=== PATIENT | female | born 1975 | race American Indian/Alaskan Native ===

== ENCOUNTER 2016-07-17 08:56 | Emergency (ER) | payer SELFPAY ==
--- NOTE | 2016-07-17 10:17 | Emergency Department Report ---
Entered by DARRICK BARBER, acting as scribe for YO JACOBS NP. Chief Complaint: Dizziness Stated Complaint: DIZZINESS/HEADACHE Time Seen by Provider: 07/17/16 09:38 - HPI History of Present Illness: Patient presents to the ED c/o dizziness since 03:00 this morning. Denies abdominal pain, chest pain, SOB, dysruia, nausea, vomiting, and diarrrhea. 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 No PSHx, PMHx, and not currently taking any medications. woke at 0300 and got out of bed fast. got dizzy. 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 no n/v/d no mantilla no trauma - Exam Vital Signs: Vital Signs 07/17/16 09:24 Temperature 98.4 F Pulse Rate 83 Respiratory 18 Rate Blood Pressure 141/85 O2 Sat by Pulse 100 Oximetry Physical Exam: General: well nourished, well develed, 40 year old female in no acute distress and nontoxic in appearance Neurologic: GCS 15, A&O x 4 nad vertigo w rapid head movement to right horizontal nystagmus MSE screening note: Focused history and physical exam performed. Due to findings the following was ordered: to FT for eval ED Medical Decision Making - EKG Data EKG shows normal: sinus rhythm Rate: normal - EKG Data Interpretation: no acute changes - Medical Decision Making MDM: Patient seen by provider in triage area. [id number] to ft for ua/preg/orthostatics; and reeval ED Disposition for MSE Condition: Stable This documentation as recorded by the scribe,DARRICK BARBER,accurately reflects the service I personally performed and the decisions made by ,YO ECHEVERRIA NP.
[2016-07-17 11:18] LABS: Bacteria,Urine 1+ /HPF (Negative); Bilirubin,Urine NEG (Negative); Blood,Urine NEG (Negative); Ketones,Urine NEG (Negative); Leukocyte Esterase,Urine NEG (Negative); Mucus,Urine FEW /HPF; Nitrite,Urine NEG (Negative); Protein,Urine <15 mg/dL mg/dL (Negative)
[2016-07-17] MEDS ORDERED: NACL 0.9% 1000 ML 1,000 ML IV ONE (11:18)
[2016-07-17] MEDS ORDERED: ANTIVERT PO ONE (11:20)
--- NOTE | 2016-07-17 11:23 | Emergency Department Report ---
ED Dizziness HPI - General Chief Complaint: Dizziness Stated Complaint: DIZZINESS/HEADACHE Time Seen by Provider: 07/17/16 10:57 Source: patient Mode of arrival: Ambulatory Limitations: No Limitations - History of Present Illness Initial Comments: This 40-year-old female that presents with headache since 3 AM. She describes her headache as ache. Denies thunderclap headache. Patient states that this is a gradual onset of headache. Patient also states that she has severe dizziness with getting up from her bed. She stated she started feeling symptoms of dizziness this morning when she wake up from bed. Denies any trauma. 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 LMP 06/16/16. Denies stiff neck, n/v, chest pain, SOB, or weakness. Denies numbness or tingling sensation. She stated she feels normal just has "this dizziness". She stated has a history of migraine and tension headaches. Denies seeing her primary care doctor or neurologist for her headaches. She states that she takes [id number] medication for her headaches. Patient also stated has not been drinking enough fluids the past couple days. MD Complaint: dizziness -: Gradual, days(s) Time: 03:00 Timing: gradual onset Description: sense of movement, other History of Same: No History of Trauma: No Severity: mild Worsens With: movement, position Associated Symptoms: denies other symptoms - Related Data Previous Rx's Medication Instructions Recorded Last Taken Type Meclizine [Antivert] 25 mg PO DAILY PRN #7 tablet 07/17/16 Unknown Rx Allergies Allergy/AdvReac Type Severity Reaction Status Date / Time No Known Allergies Allergy Unverified 07/17/16 10:56 ED Review of Systems ROS: Stated complaint: DIZZINESS/HEADACHE Other details as noted in HPI Comment: All other systems reviewed and negative Constitutional: denies: chills, fever Eyes: denies: eye pain, eye discharge, vision change ENT: denies: ear pain, throat pain Respiratory: denies: cough, shortness of breath, wheezing Cardiovascular: denies: chest pain, palpitations Endocrine: no symptoms reported Gastrointestinal: denies: abdominal pain, nausea, diarrhea Genitourinary: denies: urgency, dysuria, discharge Musculoskeletal: denies: back pain, joint swelling, arthralgia Skin: denies: rash, lesions Neurological: denies: headache, weakness, paresthesias Psychiatric: denies: anxiety, depression Hematological/Lymphatic: denies: easy bleeding, easy bruising ED Past Medical Hx - Past Medical History Previous Medical History?: No - Surgical History Past Surgical History?: No - Social History Smoking Status: Never Smoker Substance Use Type: None - Medications Home Medications: Home Medications Medication Instructions Recorded Confirmed Last Taken Type Meclizine [Antivert] 25 mg PO DAILY PRN #7 tablet 07/17/16 Unknown Rx ED Physical Exam - General Limitations: No Limitations General appearance: alert, in no apparent distress - Head Head exam: Present: atraumatic, normocephalic, normal inspection - Eye Eye exam: Present: normal appearance, PERRL, EOMI, nystagmus (horizontal) - ENT ENT exam: Present: normal orophraynx, mucous membranes moist, TM's normal bilaterally - Neck Neck exam: Present: normal inspection, full ROM. Absent: tenderness, meningismus, lymphadenopathy, thyromegaly - Respiratory Respiratory exam: Present: normal lung sounds bilaterally. Absent: respiratory distress, wheezes, rales, rhonchi - Cardiovascular Cardiovascular Exam: Present: regular rate, normal rhythm. Absent: systolic murmur, diastolic murmur, rubs, gallop - GI/Abdominal GI/Abdominal exam: Present: soft, normal bowel sounds - Extremities Exam Extremities exam: Present: normal inspection, full ROM, normal capillary refill. Absent: tenderness, calf tenderness - Back Exam Back exam: Present: normal inspection, full ROM. Absent: tenderness, CVA tenderness (R), CVA tenderness (L) - Neurological Exam Neurological exam: Present: alert, oriented X3, CN II-XII intact - Psychiatric Psychiatric exam: Present: normal affect, normal mood - Skin Skin exam: Present: warm, dry, intact, normal color. Absent: rash ED Course Vital Signs 07/17/16 07/17/16 09:24 11:50 Temperature 98.4 F Pulse Rate 83 Pulse Rate [ 63 Lying] Pulse Rate [ 61 Sitting] Pulse Rate [ 65 Standing] Respiratory 18 Rate Blood Pressure 141/85 Blood Pressure 118/80 [Lying] Blood Pressure 123/80 [Sitting] Blood Pressure 124/79 [Standing] O2 Sat by Pulse 100 Oximetry - Reevaluation(s) Reevaluation #1: 07/17/16 12:23 Patient stated vertigo subsided. Headache is currently 1 out of 10. Patient stated she feels much better and back to normal. Reevaluation #2: 07/17/16 12:24 Patient went to pressure. Came back and laid down. Patient stated no vertigo at this time as well. ED Medical Decision Making - Lab Data Result diagrams: 07/17/16 11:44 07/17/16 11:44 - Medical Decision Making Ed course: 40-year-old female that presents with vertigo 1- Dr. Hidalgo aware of patient and treatment plan, no CT scan needed this time. 2- IV fluids 1000ml bolus 3- Meclizine 25mg PO. 4- Patient does not look toxic or ill in appearnce. No signs of any distress noted. 5- EKG normal sinus rhythm 6- Patient stated feels much better. 7- I instructed the patient to follow-up with a neurologist for history of headaches and vertigo. 8- Patient denies any symptoms of UTI 8- at this time the patient has no questions about d/c plan and agrees with plan of care. Critical care attestation.: If time is entered above; I have spent that time in minutes in the direct care of this critically ill patient, excluding procedure time. ED Disposition Clinical Impression: Vertigo Headache Qualifiers: Headache type: unspecified Headache chronicity pattern: chronic headache Intractability: not intractable Qualified Code(s): R51 - Headache Disposition: DISCHARGED TO HOME OR SELFCARE Is pt being admited?: No Does the pt Need Aspirin: No Condition: Stable Instructions: Migraine Headache (ED), Tension Headache (ED), Vertigo (ED) Additional Instructions: Follow-up with her neurologist in 3-5 days. If symptoms worse or change such as severe sudden headache, nausea vomiting, chest pain, shortness of breath, numbness or tingling report back emergency room. Prescriptions: Meclizine [Antivert] 25 mg PO DAILY PRN #7 tablet PRN Reason: Vertigo Referrals: PRIMARY CARE, [Primary Care Provider] - 3-5 Days [facility] [Outside] - 3-5 Days [facility] [Outside] - 3-5 Days Forms: Work/School Release Form(ED)
[2016-07-17 11:56] LABS: Basophils % (Auto) 0.4 % (0.0-1.8); Eosinophils % (Auto) 1.1 % (0.0-4.3); Hematocrit 34.1 % (30.3-42.9); Hemoglobin 10.6 gm/dl (10.1-14.3); Mean Corpuscular HGB Conc 31 % (30-34); Mean Corpuscular Volume 78 fl (79-97); Platelet Count 341 K/mm3 (140-440); Red Blood Count 4.36 M/mm3 (3.65-5.03); Red Cell Distribution Width 15.1 % (13.2-15.2); White Blood Count 6.9 K/mm3 (4.5-11.0)
[2016-07-17 12:01] LABS: Mean Corpuscular Hemoglobin 24 pg (28-32)
[2016-07-17 12:09] LABS: Anion Gap 16 mmol/L; BUN/Creatinine Ratio 16.66; Blood Urea Nitrogen 10 mg/dL (7-17); Carbon Dioxide 23 mmol/L (22-30); Chloride 103.9 mmol/L (98-107); Glucose 94 mg/dL (65-100); Potassium 5.1 mmol/L (3.6-5.0); Sodium 138 mmol/L (137-145)
[2016-07-17 13:16] VITALS: BP 113/73
== END 2016-07-17 13:00 | disposition home or self-care (01) ==
LOC: ED 08:56
DX: G43.909 Migraine, unspecified, not intractable, without status migrainosus (principal); R42 Dizziness and giddiness
CPT/HCPCS: 36415; 80048; 81001; 85025; 93005; 93010; 96360; 99283; J7030

== ENCOUNTER 2018-01-16 11:38 | Emergency (ER) | payer OTHER ==
--- NOTE | 2018-01-16 13:35 | Emergency Department Report ---
Blank Doc - Documentation Documentation: Patient presents to emergency department with a chief complaint heart palpitations and started last night. Patient denies chest pain or shortness of breath. 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 Patient denies CONSUMPTION of caffeine or diet pills. Patient also denies any rorb-nvm-[id number] supplements. Care of the patient will be turned over to the mID level care provider within the available for consultation. EKG shows normal sinus rhythm with a rate of [address] elevations.
[2018-01-16 13:49] LABS: Basophils # (Auto) 0.1 K/mm3 (0.0-0.1); Basophils % (Auto) 1.2 % (0.0-1.8); Eosinophils # (Auto) 0.1 K/mm3 (0.0-0.4); Eosinophils % (Auto) 1.1 % (0.0-4.3); Hematocrit 35.8 % (30.3-42.9); Hemoglobin 11.6 gm/dl (10.1-14.3); Lymphocytes # (Auto) 4.1 K/mm3 (1.2-5.4); Lymphocytes % (Auto) 35.7 % (13.4-35.0); Mean Corpuscular HGB Conc 33 % (30-34); Mean Corpuscular Volume 79 fl (79-97); Monocytes # (Auto) 0.7 K/mm3 (0.0-0.8); Monocytes % (Auto) 6.5 % (0.0-7.3); Platelet Count 396 K/mm3 (140-440); Red Blood Count 4.51 M/mm3 (3.65-5.03); Red Cell Distribution Width 14.9 % (13.2-15.2)
[2018-01-16 13:54] LABS: Mean Corpuscular Hemoglobin 26 pg (28-32)
[2018-01-16 14:00] LABS: INR 0.93 (0.87-1.13)
[2018-01-16 14:01] LABS: Partial Thromboplastin Time 27.5 Sec. (24.2-36.6)
--- NOTE | 2018-01-16 14:13 | XRay Report ---
AP CHEST: HISTORY: Palpitations AP view of the chest demonstrates a normal mediastinal and cardiac contour with clear lungs and normal bony and soft tissue structures. IMPRESSION: Unremarkable AP chest.
--- NOTE | 2018-01-16 14:29 | Emergency Department Report ---
ED Palpitations HPI - General Chief Complaint: Arrhythmia/Palpitations Stated Complaint: HEADACHE/HEART PALPITATIONS Time Seen by Provider: 01/16/18 13:21 Source: patient Mode of arrival: Ambulatory Limitations: No Limitations - History of Present Illness Initial Comments: This is a 42-year-old female presents for evaluation heart palpitations that started 3 days ago. Denies past medical history. 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 She denies taking [id number]-nox-[id number] medication or caffeine. Patient states she has primary care provider with [facility] but never followed up. She admits to headache associated with symptoms that last for 4-8 hours. She denies chest pain, shortness of breath, vomiting, diarrhea, or radiating pain. MD Complaint: palpitations Onset/Timin -: days(s) Context: occured during rest Associated Symptoms: denies other symptoms - Related Data Previous Rx's Medication Instructions Recorded Last Taken Type Meclizine [Antivert] 25 mg PO DAILY PRN #7 tablet 07/17/16 Unknown Rx Allergies Allergy/AdvReac Type Severity Reaction Status Date / Time No Known Allergies Allergy Unverified 07/17/16 10:56 ED Review of Systems ROS: Stated complaint: HEADACHE/HEART PALPITATIONS Other details as noted in HPI Constitutional: denies: chills, fever Respiratory: denies: cough, shortness of breath, wheezing Cardiovascular: palpitations. denies: chest pain Endocrine: no symptoms reported Gastrointestinal: denies: abdominal pain, nausea, diarrhea Skin: denies: rash, lesions Neurological: headache. denies: weakness, paresthesias Psychiatric: denies: anxiety, depression ED Past Medical Hx - Past Medical History Previous Medical History?: No - Surgical History Past Surgical History?: No - Social History Smoking Status: Never Smoker Substance Use Type: None - Medications Home Medications: Home Medications Medication Instructions Recorded Confirmed Last Taken Type Meclizine [Antivert] 25 mg PO DAILY PRN #7 tablet 07/17/16 Unknown Rx ED Physical Exam - General Limitations: No Limitations General appearance: alert, in no apparent distress - Respiratory Respiratory exam: Present: normal lung sounds bilaterally. Absent: respiratory distress - Cardiovascular Cardiovascular Exam: Present: regular rate, normal rhythm. Absent: systolic murmur, diastolic murmur, rubs, gallop - GI/Abdominal GI/Abdominal exam: Present: soft, normal bowel sounds. Absent: tenderness, guarding, rebound, organomegaly, mass - Neurological Exam Neurological exam: Present: alert, oriented X3 - Psychiatric Psychiatric exam: Present: normal affect, normal mood - Skin Skin exam: Present: warm, dry, intact, normal color. Absent: rash ED Course Vital Signs 01/16/18 12:02 Temperature 97.8 F Pulse Rate 95 H Respiratory 18 Rate Blood Pressure 133/88 O2 Sat by Pulse 100 Oximetry ED Medical Decision Making - Lab Data Result diagrams: 01/16/18 13:34 01/16/18 13:34 Lab Results 01/16/18 01/16/18 01/16/18 Range/Units 13:34 13:34 13:34 WBC 11.4 H (4.5-11.0) K/mm3 RBC 4.51 (3.65-5.03) M/mm3 Hgb 11.6 (10.1-14.3) gm/dl Hct 35.8 (30.3-42.9) % MCV 79 (79-97) fl MCH 26 L (28-32) pg MCHC 33 (30-34) % RDW 14.9 (13.2-15.2) % Plt Count 396 (140-440) K/mm3 Lymph % (Auto) 35.7 H (13.4-35.0) % Kleberg % (Auto) 6.5 (0.0-7.3) % Eos % (Auto) 1.1 (0.0-4.3) % Baso % (Auto) 1.2 (0.0-1.8) % Lymph # 4.1 (1.2-5.4) K/mm3 Kleberg # 0.7 (0.0-0.8) K/mm3 Eos # 0.1 (0.0-0.4) K/mm3 Baso # 0.1 (0.0-0.1) K/mm3 Seg Neutrophils % 55.5 (40.0-70.0) % Seg Neutrophils # 6.3 (1.8-7.7) K/mm3 PT 12.9 (12.2-14.9) Sec. INR 0.93 (0.87-1.13) APTT 27.5 (24.2-36.6) Sec. Sodium 138 (137-145) mmol/L Potassium 4.3 (3.6-5.0) mmol/L Chloride 102.1 (98-107) mmol/L Carbon Dioxide 25 (22-30) mmol/L Anion Gap 15 mmol/L BUN 14 (7-17) mg/dL Creatinine 0.7 (0.7-1.2) mg/dL Estimated GFR > 60 ml/min BUN/Creatinine Ratio 20 % Glucose 107 H (65-100) mg/dL Calcium 9.0 (8.4-10.2) mg/dL Total Bilirubin < 0.20 (0.1-1.2) mg/dL AST 14 (5-40) units/L ALT 12 (7-56) units/L Alkaline Phosphatase 81 (35-129) units/L Troponin T (0.00-0.029) ng/mL Total Protein 8.0 (6.3-8.2) g/dL Albumin 3.9 (3.9-5) g/dL Albumin/Globulin Ratio 1.0 % TSH (0.270-4.200) mlU/mL Thyroxine (T4) (4.0-12.0) ug/dL 01/16/18 01/16/18 01/16/18 Range/Units 13:34 13:34 13:34 WBC (4.5-11.0) K/mm3 RBC (3.65-5.03) M/mm3 Hgb (10.1-14.3) gm/dl Hct (30.3-42.9) % MCV (79-97) fl MCH (28-32) pg MCHC (30-34) % RDW (13.2-15.2) % Plt Count (140-440) K/mm3 Lymph % (Auto) (13.4-35.0) % Kleberg % (Auto) (0.0-7.3) % Eos % (Auto) (0.0-4.3) % Baso % (Auto) (0.0-1.8) % Lymph # (1.2-5.4) K/mm3 Kleberg # (0.0-0.8) K/mm3 Eos # (0.0-0.4) K/mm3 Baso # (0.0-0.1) K/mm3 Seg Neutrophils % (40.0-70.0) % Seg Neutrophils # (1.8-7.7) K/mm3 PT (12.2-14.9) Sec. INR (0.87-1.13) APTT (24.2-36.6) Sec. Sodium (137-145) mmol/L Potassium (3.6-5.0) mmol/L Chloride (98-107) mmol/L Carbon Dioxide (22-30) mmol/L Anion Gap mmol/L BUN (7-17) mg/dL Creatinine (0.7-1.2) mg/dL Estimated GFR ml/min BUN/Creatinine Ratio % Glucose (65-100) mg/dL Calcium (8.4-10.2) mg/dL Total Bilirubin (0.1-1.2) mg/dL AST (5-40) units/L ALT (7-56) units/L Alkaline Phosphatase (35-129) units/L Troponin T < 0.010 (0.00-0.029) ng/mL Total Protein (6.3-8.2) g/dL Albumin (3.9-5) g/dL Albumin/Globulin Ratio % TSH 2.450 (0.270-4.200) mlU/mL Thyroxine (T4) 8.3 (4.0-12.0) ug/dL - Radiology Data Radiology results: report reviewed, image reviewed Fluoro Time In Minutes: AP CHEST: HISTORY: Palpitations AP view of the chest demonstrates a normal mediastinal and cardiac contour with clear lungs and normal bony and soft tissue structures. IMPRESSION: Unremarkable AP chest. - Medical Decision Making Patient was examined by me and Dr. Can. Vitals are normal and patient is in no acute distress. Obtained labs, chest x-ray, and EKG. EKG interpreted by attending and normal sinus rhythm. All labs are unremarkable. Referral to cardiology for continued care. Patient discharged home in stable condition. Follow up with PCP in 2-3 days. Critical care attestation.: If time is entered above; I have spent that time in minutes in the direct care of this critically ill patient, excluding procedure time. ED Disposition Clinical Impression: Palpitations Disposition: DC-01 TO HOME OR SELFCARE Is pt being admited?: No Does the pt Need Aspirin: No Condition: Stable Instructions: Palpitations (ED) Additional Instructions: Follow-up with your primary care provider at [facility]. There is some referral to cardiology for further evaluation. Return to the emergency room is chest pain, shortness of breath, or radiating pain from chest. Referrals: [facility] [Provider Group] - 3-5 Days ESTRELLA SHELBY MD [Staff Physician] - 3-5 Days Forms: Work/School Release Form(ED) Time of Disposition: 15:24
[2018-01-16 14:53] LABS: Alanine Aminotransferase 12 units/L (7-56); Albumin 3.9 g/dL (3.9-5); BUN/Creatinine Ratio 20; Blood Urea Nitrogen 14 mg/dL (7-17); Hemolysis Index 21
[2018-01-16 15:31] VITALS: BP 134/84
== END 2018-01-16 15:30 | disposition home or self-care (01) ==
LOC: ED 11:38
DX: R00.2 Palpitations (principal); R51 Headache; Z56.3 Stressful work schedule
CPT/HCPCS: 36415; 71045; 80053; 84436; 84443; 84484; 85025; 85610; 85730; 93005; 93010